=== PATIENT | male | born 1985 | race Caucasian/White ===

== ENCOUNTER 2017-06-18 22:30 | Emergency (ER) | payer OTHER ==
[2017-06-18 23:10] VITALS: BP 187/101
== END 2017-06-18 23:16 | disposition home or self-care (01) ==
LOC: ED 22:45
DX: I10 Essential (primary) hypertension (principal); F10.10 Alcohol abuse, uncomplicated; R00.0 Tachycardia, unspecified
CPT/HCPCS: 93005; 96360; 96361